=== PATIENT | female | born 1990 | race African-American/Black ===

== ENCOUNTER 2022-01-01 11:37 | Emergency (ER) | payer MEDICAID ==
[~2022-01-01] VITALS: Ht 175.3 cm; Wt 79.0 kg
[2022-01-01 11:42] VITALS: BP 160/92
[2022-01-01 13:12] LABS: CLARITY URINE CLOUDY (CLEAR); COLOR URINE YELLOW (YELLOW); KETONES URINE 1+ (NEGATIVE); LEUKOCYTE ESTERASE URINE 1+ (NEGATIVE); NITRITE URINE NEGATIVE (NEGATIVE); OCCULT BLOOD URINE NEGATIVE (NEGATIVE); PH URINE 5.5 (4.5-8.0); PROTEIN URINE 1+ (NEGATIVE); SPECIFIC GRAVITY URINE 1.047 (1.005-1.030); UROBILINOGEN URINE 0.2 E.U./dL (0.2-1.0)
[2022-01-01] MEDS ORDERED: FLUCONAZOLE 150MG TABLET PO NR (17:00)
[2022-01-01] MEDS ORDERED: FLUCONAZOLE 50MG TABLET PO ONE (17:00)
[2022-01-04 07:08] LABS: NEISSERIA GONORRHOEAE NAA Negative (Negative)
== END 2022-01-01 18:08 | disposition home or self-care (01) ==
LOC: ER 11:37
DX: N39.0 Urinary tract infection, site not specified (principal); N89.8 Other specified noninflammatory disorders of vagina; I10 Essential (primary) hypertension
CPT/HCPCS: 81003; 81025; 87210; 87491; 87591; 99283